=== PATIENT | female | born 1950 | race Caucasian/White ===

== ENCOUNTER 2016-07-26 14:55 | Inpatient (IN) | payer MEDICARE ==
[2016-07-26] MEDS ORDERED: FENTANYL 100 MCG/2 ML VIAL ONE (15:35)
[2016-07-26] MEDS ORDERED: ONDANSETRON 4 MG/2ML 2 ML VIAL ONE (15:35)
[2016-07-26 15:47] LABS: ABSOLUTE NEUTROPHIL COUNT 9.6 K/mm3 (1.8-7.7); BASO # 0.1 K/mm3 (0.0-0.2); BASO % 0.5 % (0.2-1.0); EOS # 0.1 (0.0-0.5); EOS % 0.5 % (0.9-2.9); HEMATOCRIT 39.3 % (37.0-47.0); HEMOGLOBIN 13.1 gm/l (12.0-16.0); IMM NEUT # 0.1 K/mm3 (0-0.2); IMM NEUT% 0.9 % (0-1); LYMPH # 1.2 (1.0-4.8); LYMPH % 10.1 % (15-45); MEAN CELL VOLUME 93.1 fl (81.0-99.0); MEAN CORPUSCULAR HGB CONC 33.3 g/dl (33.0-37.0); MEAN PLATELET VOLUME 10.4 fl (7.4-10.4); MONO # 0.6 (0.0-0.8); MONO % 4.9 % (4-12); NEUT % 83.1 % (43-75); PLATELET COUNT 233 K/mm3 (130-400); RED CELL DISTRIBUTION WIDTH 13.2 % (11.5-14.5)
[2016-07-26 15:57] LABS: CALCIUM 9.5 mg/dL (8.6-10.3)
--- NOTE | 2016-07-26 16:23 | RAD ---
PORTABLE CHEST RADIOGRAPH HISTORY: Left hip pain, preop assessment. Frontal portable chest radiograph dated 07/26/2016. COMPARISON: None. FINDINGS: FOCAL AIRSPACE OPACITY: No gross airspace consolidation. PLEURAL EFFUSION: None. CARDIOMEDIASTINAL SILHOUETTE: Nonenlarged. PNEUMOTHORAX: None identified. OSSEOUS STRUCTURES: No grossly destructive lesions. IMPRESSION: No acute cardiopulmonary process noted.
--- NOTE | 2016-07-26 16:23 | RAD ---
LEFT HIP AND AP PELVIS SERIES HISTORY: Ground level fall, left hip pain.. Frontal view of the pelvis with frontal and frog-leg lateral views of the left hip. PELVIC RING: Grossly intact. HIP ALIGNMENT: Grossly unremarkable. HIP JOINT SPACES: Preserved. FRACTURE: Angulated subcapital fracture of the left proximal femur. There is minor varus and posterior angulation of the shaft. IMPRESSION: Mildly angulated subcapital fracture of the left proximal femur.
[2016-07-26 16:34] LABS: INR 0.96; PARTIAL THROMBOPLASTIN TIME 22.5 SECONDS (24.5-33.0); PROTHROMBIN TIME 10.1 SECONDS (9.3-11.4)
[2016-07-26] MEDS ORDERED: ONDANSETRON 4 MG/2ML 2 ML VIAL IV PRN (17:17)
[2016-07-26] MEDS ORDERED: HYDROMORPHONE HCL 0.5 MG/0.5 ML SYRINGE IV PRN (17:17)
[2016-07-26] MEDS ORDERED: MENTHOL/CETYLPYRD 1 EACH LOZENGE PO PRN (17:22)
[2016-07-26] MEDS ORDERED: SODIUM CHLORIDE 0.9% 100 ML IV PRN (17:22)
[2016-07-26] MEDS ORDERED: BISACODYL 5 MG TABLET.EC PO PRN (17:22)
[2016-07-26] MEDS ORDERED: BLISTEX LIPSTICK 1 EACH TP PRN (17:22)
[2016-07-26] MEDS ORDERED: BISACODYL 10 MG SUP PR PRN (17:22)
[2016-07-26] MEDS ORDERED: ACETAMINOPHEN 325 MG TABLET PO PRN (17:22)
[2016-07-26] MEDS ORDERED: MAGNESIUM HYDROXIDE 30 ML UDCUP PO PRN (17:22)
[2016-07-26] MEDS ORDERED: D5 1/2NS with 20 mEq KCL 1,000 ML IV ONE (17:29)
[2016-07-26] MEDS: HYDROMORPHONE HCL 1 MG/ML SYRINGE IV PRN ×3 (17:33→23:24)
[2016-07-26] MEDS: D5 1/2NS with 20 mEq KCL 1,000 ML IV SCH (17:33)
[2016-07-26 18:03] VITALS: BMI 25.9
--- NOTE | 2016-07-26 18:26 | HP ---
SHELBY MARTÍNEZ : 1950 [id number] DATE OF ADMISSION: July 26, 2016 CHIEF COMPLAINT: Left hip injury HISTORY OF PRESENT ILLNESS: This is a 66-year-old, otherwise healthy female who fell when she tripped over a curb this afternoon landing on her left hip. She had immediate pain and inability to bear weight on the leg. She was brought to the ED where evaluation demonstrated a left hip fracture. She was admitted by the hospitalist's service and orthopedics was consulted to evaluate and treat. She is seen on the med-surg floor. She complains of diminished pain on the left hip now that she is not moving it and she's gotten some pain medications. She states her pain was as bad as 8/10 prior to those medications. It is all localized to her left hip. She does have an antecedent history of some hip pain, although nothing that has been activity limiting in the past. She denies any other extremity complaints. She denies any loss of consciousness. She denies any numbness or tingling down her left leg. Past medical and surgical history per the hospitalist's H&P. REVIEW OF SYSTEMS: Negative today for any constitutional, cardiovascular or respiratory complaints. PHYSICAL EXAMINATION: Patient is a well-developed, well-nourished female in on acute distress. She is awake, alert and conversant throughout the encounter. She is seen lying in bed in the med-surg keller. HEENT: She is normal, cephalic and atraumatic. EOMI. Neck is soft and supple. LUNGS: Inflate equally and she's got intact peripheral pulses. ABDOMEN: Soft, NT and non-distended. She's got tenderness to palpation in the groin crease and about the lateral side of the hip. The hip is sitting in an externally rotated position. She is flexed about 30 degrees with her foot on a pillow. She has limited ROM at the hip secondary to pain. She is able to flex and extend gently at the knee and has full motion at the ankle and digits. She has 2+ DP and PT pulses. She has intact sensation throughout the lower extremity. There is no significant ecchymosis noted. RADIOGRAPHS: Review of xrays shows a basicervical left femoral neck fracture that is displaced with some early degenerative changes about her acetabulum. IMPRESSION: This is a 66-year-old female with an acute fall and a left displaced femoral neck fracture with underlying osteoarthritis. PLAN: Left total hip arthroplasty. She will be made NPO tonight. We will make sure she is medically cleared and plan for a total hip arthroplasty in the OR tomorrow either with myself or with Dr. Nugent. PAB: marquise CC: Favian Willett
[2016-07-26] MEDS: FAMOTIDINE 20 MG TABLET PO SCH (20:34)
[2016-07-26] MEDS: DOCUSATE SODIUM 100 MG CAPSULE PO SCH (20:34)
[2016-07-27] MEDS: HYDROMORPHONE HCL 1 MG/ML SYRINGE IV PRN ×5 (02:46→18:49)
[2016-07-27] MEDS: D5 1/2NS with 20 mEq KCL 1,000 ML IV SCH (02:46)
[2016-07-27] MEDS ORDERED: CEFAZOLIN SODIUM 2 GRAM PREMIX 2 G in Premix (D5W) 100 ml 1 EACH IV PRN (06:00)
[2016-07-27 06:33] LABS: CALCIUM 8.2 mg/dL (8.6-10.3)
[2016-07-27] MEDS: SODIUM CHLORIDE 0.9% 1,000 ML IV SCH ×4 (07:31→22:06)
--- NOTE | 2016-07-27 07:46 | PDOC43 ---
- Subjective Chief Complaint: left hip pain Pain is well controlled now with hydromorphone but is making her sleepy. - Objective Vital Signs Temperature 97.2 F 07/27/16 01:05 Pulse Rate 101 07/27/16 01:05 Respiratory Rate 16 07/27/16 05:55 Blood Pressure 119/60 07/27/16 01:05 O2 Saturation by Pulse Oximetry 95 07/27/16 01:05 Oxygen Delivery Method Room Air Oxygen Flow Rate 0 Intake and Output 07/26/16 07/27/16 07/28/16 06:59 06:59 06:59 Intake Total 2217 Output Total 850 Balance 1367 General: Alert, Oriented x3, Cooperative, No Acute Distress HEENT: Mucous membr. moist/pink Lungs: Clear to Auscultation Bilaterally Cardiovascular: Regular Rate and Rhythm, No Murmur Abdomen: Soft, Normal Bowel Sounds, No Tenderness, No Masses Extremities: Normal Pulses, No Edema Skin: Normal Color Neurological: Normal Speech Psych/Mental Status: Normal Mood Laboratory 07/27/16 05:30 07/27/16 05:30 Calcium 8.2 L Current Medications: Current meds reviewed in EMR. - Problems: Assessment/Plan (1) Femur fracture, left Qualifiers: Encounter type: initial encounter Femur location: other head and neck Fracture type: closed Qualifier Code: (S72.092A) Other fracture of head and neck of left femur, initial encounter for closed fracture Status: Acute Assessment/Plan: Orthopedics planning mahnaz-arthroplasty at 1500 today. Patient is medically cleared for surgery. (2) Depression Qualifiers: Depression Type: major depressive disorder Active/Remission status: in remission of unspecified degree Status: ChronicAssessment/Plan: Stable, continue bupropion (3) GERD (gastroesophageal reflux disease) Qualifiers: Esophagitis presence: esophagitis presence not specified Qualifier Code : (K21.9) Gastro-esophageal reflux disease without esophagitis Status: ChronicAssessment/Plan: Stable, continue famotidine. (4) Hyperkalemia Status: AcuteAssessment/Plan: mild, due to IV potassium overnight. K discontinued and NS given. VTE Prophylaxis: mechanical only prior to surgery. Disposition: to OR at 1500 today.
--- NOTE | 2016-07-27 08:56 | HP ---
Nuzhat Ulloa [id number] : 1950 DATE OF ADMISSION: 07/26/2016 IDENTIFICATION: Ms. Ulloa is a 66-year-old followed by Dr. Mono Ledesma. CHIEF COMPLAINT: Left hip pain. HISTORY OF PRESENT ILLNESS: Ms. Ulloa was walking and lost her balance on a curb, fell and struck her left hip about 11:00 this morning. There was no loss of consciousness. She did not strike her head. She was able to ambulate a bit and get to her car, but ultimately could not get out of the car because of too much pain in the hip. She was brought to [facility] where x-rays revealed a proximal left femur fracture and she was referred to the hospitalist service for admission. Dr. Herbert for consultation. REVIEW OF SYSTEMS: HEENT: No headache, lightheadedness, or loss of consciousness. No problems with ears, eyes, nose, or throat. Respiratory: No cough or dyspnea. Cardiac: No chest pain or palpitations. Gastrointestinal: She does have intermittent reflux symptoms. No nausea or vomiting. No diarrhea, constipation, hematochezia, or melena. Genitourinary: No symptoms. Musculoskeletal: Acute left hip pain and left groin pain. Constitutional: No fevers or chills. PAST MEDICAL HISTORY: 1. Depression. 2. Acid reflux. PAST SURGICAL HISTORY: 1. Umbilical hernia repair as an . 2. section x3. ALLERGIES: None known. MEDICATIONS: 1. Over the counter famotidine 10 mg by mouth as needed. 2. Over the counter Aleve 220 mg by mouth as needed. 3. Excedrin migraine as needed. 4. An antidepressant once each morning, she did take it this morning. Her will call us back with the name of that medication. HABITS: No current or past tobacco use. She does have a small alcoholic drink about three times a week. SOCIAL HISTORY: She is retired and lives with her in [place]. She has been caring for a 2-year-old grandchild. FAMILY HISTORY: Her father had Alzheimer's disease and coronary artery disease runs in his family. PHYSICAL EXAMINATION: GENERAL: This is a pleasant 66-year-old. She has mild distress with acute left hip pain. VITAL SIGNS: Temperature 98.3 degrees Fahrenheit, blood pressure 148/75, pulse 97, respiratory rate 18, oxygen saturation is 100% on room air. HEENT: Pupils equal, round, and reactive. Extraocular muscles intact. Oropharynx is moist. NECK: No jugular venous distention or bruits. CHEST: Clear to auscultation. HEART: Regular. No murmur. ABDOMEN: Soft, nontender, normal bowel tones. No organomegaly. EXTREMITIES: Good peripheral pulses. No cyanosis, clubbing, or edema. NEUROLOGIC: Alert and oriented. No focal deficits. LABORATORIES: White blood cell count is 11.5, hemoglobin and hematocrit 13.1, and 39.3, platelets 233. INR 0.96, PTT 22.5. Sodium 137, potassium 4.0, chloride 103, CO2 26, BUN 19, creatinine 1.1, glucose 119. DIAGNOSTICS: Chest x-ray is normal. Left hip x-ray does show a mildly angulated subcapital fracture of the left proximal femur. ASSESSMENT: Ms. Ulloa is a 66-year-old with an acute left proximal femur fracture. She has underlying depression and acid reflux. PLAN: 1. Admit to med/surg. 2. Consult orthopedics for anticipated hemiarthroplasty tomorrow morning. 3. Continue outpatient antidepressant medication and replace famotidine with 20 mg twice daily. 4. Intravenous fluid hydration and repeat chemistry profile in the morning. 5. Regular diet tonight, nothing by mouth after midnight. 6. Full code status. 7. Venous thrombosis prophylaxis with mechanical means prior to surgery. JOB:
[2016-07-27] MEDS ORDERED: BUPROPION HCL 150 MG XL TAB.ER.24H PO SCH (09:00)
[2016-07-27] MEDS: FAMOTIDINE 20 MG TABLET PO SCH ×3 (09:42→20:31)
[2016-07-27] MEDS: DOCUSATE SODIUM 100 MG CAPSULE PO SCH ×2 (09:43→23:39)
[2016-07-27] MEDS ORDERED: MIDAZOLAM HCL 1 MG/ML 2ML VIAL ONE (14:20)
[2016-07-27] MEDS ORDERED: FENTANYL 100 MCG/2 ML VIAL ONE (14:20)
[2016-07-27] MEDS ORDERED: TRANEXAMIC ACID 1,000 MG in SODIUM CHLORIDE 0.9% 50 ML IV PRN (14:31)
[2016-07-27] MEDS ORDERED: POLYMYXIN B SULFATE 500,000 UNITS, BACITRACIN 25,000 UNITS in SODIUM CHLORIDE 3 L IRRIG... IR PRN (14:33)
[2016-07-27] MEDS ORDERED: BUPIVACAINE 0.5% (PRES FREE) 30 ML VIAL ONE (14:56)
[2016-07-27] MEDS ORDERED: BUPIVACAINE 0.25% (MDV) 20 ML in SODIUM CHLORIDE 0.9% FLUSH 20 ML IF PRN (15:00)
[2016-07-27] MEDS ORDERED: BUPIVACAINE 0.25% (MDV) 24 ML, MORPHINE SULFATE 8 MG, EPINEPHRINE 0.3 MG in SODIUM CHLO... IF PRN (15:00)
[2016-07-27] MEDS ORDERED: PROPOFOL 20 ML IV ONE ×4 (15:34→17:41)
[2016-07-27] MEDS ORDERED: PHENYLEPHRINE 10 MG/1 ML (1%) VIAL ONE (15:42)
[2016-07-27] MEDS ORDERED: PROMETHAZINE HCL 25 MG/ML VIAL IM PRN (15:50)
[2016-07-27] MEDS ORDERED: ONDANSETRON 4 MG/2ML 2 ML VIAL IV PRN (15:50)
[2016-07-27] MEDS ORDERED: LABETALOL HCL 5 MG/ML 20ML VIAL IV PRN (15:50)
[2016-07-27] MEDS ORDERED: ATROPINE SULFATE 0.4 MG/1 ML VIAL IV PRN (15:50)
[2016-07-27] MEDS ORDERED: MEPERIDINE 25 MG/ML SYRINGE IV PRN (15:50)
[2016-07-27] MEDS ORDERED: HYDRALAZINE HCL 20 MG/1 ML VIAL IV PRN (15:50)
[2016-07-27] MEDS ORDERED: NALOXONE HCL 0.4 MG/ML VIAL IV PRN (15:50)
[2016-07-27] MEDS ORDERED: FENTANYL 100 MCG/2 ML VIAL IV PRN (15:50)
[2016-07-27] MEDS ORDERED: LACTATED RINGERS 1,000 ML IV SCH (16:00)
[2016-07-27] MEDS ORDERED: POLYMYXIN B SULFATE IR PRN ×3 (17:14)
[2016-07-27] MEDS ORDERED: [UNRECOGNIZED DRUG - OTHER] IR PRN ×3 (17:14)
[2016-07-27] MEDS ORDERED: BACITRACIN IR PRN ×3 (17:14)
--- NOTE | 2016-07-27 17:45 | RAD ---
Examination: HIP LEFT 1 VIEW Clinical indication: Left hip arthroplasty. Comparisons: 07/26/2016 Findings: Left hip: A left total hip arthroplasty is noted. The femoral component is well seated within the acetabular component. Cerclage wire traverses the greater trochanter distribution. A compression plate is noted and partially obscured by the femoral stem component as well. Adjacent soft tissue disruption compatible with recent surgery is noted. No adjacent fracture of the iliac or proximal femoral diaphysis is identified. IMPRESSION: Satisfactory positioning of the left hip arthroplasty. Postsurgical changes are noted.
--- NOTE | 2016-07-27 17:45 | PCMBPN ---
Brief Post Op Note: Date of Procedure: 07/27/16 Start Time: 1530 Preoperative Diagnosis: 1. left hip fracture Postoperative Diagnosis: 1. Same Procedure: left hip fracture with fracture of the greater troch Surgeon: Alejandro Herbert MD Assist: Brent Aguilera MD Anesthesia: Jeb Garcia Findings: as above Condition: stable to PACU Complications: none; greater troch fracture treated with plate and tension band IV Fluids: 1400 mLs of LR Urine Output: 1200 mLs Estimated Blood Loss: 200 mLs Tourniquet Time: none Specimens: N/A Implants: [employer] [place] 48 cup, +4 liner, 32mm +9 biolox head, size 3 trilock h.o. stem Drains: none Alejandro Herbert MD
[2016-07-27] MEDS ORDERED: ONDANSETRON 4 MG/2ML 2 ML VIAL ONE (17:56)
[2016-07-27] MEDS ORDERED: HYDROMORPHONE HCL 1 MG/ML SYRINGE ONE (18:32)
--- NOTE | 2016-07-27 19:00 | RAD ---
EXAMINATION : PELVIS HISTORY: Left hip arthroplasty. COMPARISONS: 07/27/2016 FINDINGS: Patient is status post left total hip arthroplasty. The femoral component appears well-seated within the acetabular component. Cerclage wires adjacent to the greater trochanter is noted. There is a an overlying compression plate not well delineated on this study as it overlies the femoral stem hardware. Soft tissue changes compatible with recent surgery is noted. IMPRESSION: Satisfactory radiographic positioning left hip arthroplasty.
[2016-07-27] MEDS ORDERED: HYDROMORPHONE HCL 0.5 MG/0.5 ML SYRINGE IV PRN (19:06)
[2016-07-27] MEDS ORDERED: OXYCODONE HCL 5 MG TABLET PO PRN (19:06)
[2016-07-27] MEDS ORDERED: KETOROLAC TROMETHAMINE 30 MG/ML 1 ML VIAL IV PRN (19:06)
[2016-07-27] MEDS ORDERED: KETOROLAC TROMETHAMINE 15 MG/ML VIAL IV PRN (19:24)
[2016-07-27] MEDS ORDERED: HYDROXYZINE PAMOATE 25 MG CAPSULE PO PRN (20:00)
[2016-07-27] MEDS: OXYCODONE HCL 10 MG TAB.SR PO SCH ×2 (20:22→20:31)
[2016-07-27] MEDS ORDERED: ASCORBIC ACID 500 MG TABLET PO SCH (21:00)
[2016-07-27] MEDS ORDERED: ACETAMINOPHEN 500 MG TABLET PO SCH (21:00)
[2016-07-27] MEDS ORDERED: CEFAZOLIN SODIUM 1 GRAM PREMIX 1 G in Premix (D5W) 50 ml 1 EACH IV SCH (23:30)
[2016-07-27 23:32] VITALS: BP 110/56
[2016-07-28] MEDS ORDERED: TRAMADOL HCL 50 MG TABLET PO PRN (01:00)
[2016-07-28] MEDS ORDERED: MULTIVITAMINS 1 TAB TABLET PO SCH (09:00)
[2016-07-28] MEDS ORDERED: ASPIRIN (ENTERIC COATED) 325 MG TABLET.EC PO SCH (09:00)
[2016-07-28] MEDS ORDERED: REMOVE PATCH 1 EACH UNIT TD ONE (17:38)
== END 2016-07-27 23:59 | disposition still patient (30) | DRG 470 ==
LOC: ED 14:55 → MS 16:19
PROVIDERS: ADMIT Family Medicine; ATTEND Family Medicine
PROC: 0SRB03Z Replacement of Left Hip Joint with Ceramic Synthetic Substitute, Open Approach (ICD-10-PCS; principal; 2016-07-27)
DX: S72.012A Unspecified intracapsular fracture of left femur, initial encounter for closed fracture (principal); K21.9 Gastro-esophageal reflux disease without esophagitis; F32.9 Major depressive disorder, single episode, unspecified; W19.XXXA Unspecified fall, initial encounter